=== PATIENT | female | born 1995 | race Caucasian/White ===

== ENCOUNTER 2024-07-26 01:07 | Emergency (ER) | payer OTHER ==
[~2024-07-26 01:07] MED LIST: CEPHALEXIN500 M1 PO
[2024-07-26] MEDS ORDERED: Ketorolac 30 MG/ML VIAL IV ONE (02:00)
[2024-07-26] MEDS ORDERED: Ondansetron 4 MG/2 ML VIAL IV ONE (02:00)
[2024-07-26] MEDS ORDERED: NS 1,000 ML IV SCH (02:00)
[2024-07-26] MEDS ORDERED: Acetaminophen 500 MG TAB PO ONE (02:15)
[2024-07-26] MEDS ORDERED: Benzonatate 100 MG CAP PO ONE (02:15)
[2024-07-26 03:40] VITALS: BP 134/86
== END 2024-07-26 03:40 | disposition home or self-care (01) ==
LOC: ED 01:07
DX: U07.1 COVID-19 (principal); R05.9 Cough, unspecified; R51.9 Headache, unspecified; R09.81 Nasal congestion; R06.00 Dyspnea, unspecified; R11.0 Nausea
CPT/HCPCS: J1885; J2405; J7030